=== PATIENT | male | born 1965 | race Caucasian/White ===

== ENCOUNTER 2016-10-22 07:53 | Emergency (ER) | payer BC ==
[2016-10-22 08:20] VITALS: BP 144/92
--- NOTE | 2016-10-22 08:39 | UC ---
Respiratory Complaint HPI - HPI Summary HPI Summary: cough x 7 days , + chest tightness, wheezing , no chest pain , no sob, no fever or chills - History of Current Complaint Chief Complaint: UCRespiratory Stated Complaint: COUGH,TIGHT CHEST,DIZZY Time Seen by Provider: 10/22/16 08:14 Hx Obtained From: Patient Onset/Duration: Gradual Onset, Lasting Days - 7, Still Present Timing: Constant Severity Initially: Moderate Severity Currently: Moderate Character: Cough: Nonproductive Aggravating Factors: Deep Breaths Alleviating Factors: Nothing Associated Signs And Symptoms: Positive: Wheezing, URI, Nasal Congestion. Negative: Dyspnea, Fever, Chills, Pleuritic Chest Pain, Hemoptysis, Dizziness, Calf Pain, Calf Swelling, Edema - Allergies/Home Medications Allergies/Adverse Reactions: Allergies Allergy/AdvReac Type Severity Reaction Status Date / Time No Known Allergies Allergy Verified 10/22/16 08:07 Home Medications: Home Medications Chlorthalidone TAB* [Hygroton TAB*] 25 mg PO DAILY 10/22/16 [History Confirmed 10/22/16] Spironolactone TAB* [Aldactone TAB*] 25 mg PO DAILY 10/22/16 [History Confirmed 10/22/16] Telmisartan (NF) [Micardis (NF)] 40 mg PO DAILY 10/22/16 [History Confirmed 01/31] metFORMIN* [Glucophage 500 MG TAB *] 500 mg PO BID 10/22/16 [History Confirmed 10/22/16] traZODone TAB* [Desyrel TAB*] 50 mg PO BEDTIME 10/22/16 [History Confirmed 10/22] PMH/Surg Hx/FS Hx/Imm Hx Endocrine History Of: Reports: Diabetes Cardiovascular History Of: Reports: Cardiac Disorders - Tachycardia, Hypertension - Surgical History Surgical History: Yes Surgery Procedure, Year, and Place: FOOT SURGERY,. HERNIA REPAIR A CHILD - Family History Known Family History: Positive: Hypertension, Diabetes - Social History Alcohol Use: six beers daily Substance Use Type: None Smoking Status (MU): Light Every Day Tobacco Smoker Type: Smokeless Tobacco Amount Used/How Often: 1/3 PPD Have You Smoked in the Last Year: Yes When Did the Patient Quit Smoking/Using Tobacco: Since Age 14 - Immunization History Most Recent Influenza Vaccination: Fall 2015 Review of Systems Constitutional: Negative Skin: Negative Eyes: Negative ENT: Negative Respiratory: Cough Cardiovascular: Negative Gastrointestinal: Negative All Other Systems Reviewed And Are Negative: Yes Physical Exam Triage Information Reviewed: Yes Appearance: Well-Appearing, No Pain Distress, Obese Vital Signs: Initial Vital Signs Temp 98.3 F 10/22/16 07:59 Pulse 104 10/22/16 07:59 Resp 20 10/22/16 07:59 BP 144/92 10/22/16 07:59 Pulse Ox 100 10/22/16 07:59 Eye Exam: Normal Eyes: Positive: Conjunctiva Clear ENT: Positive: Normal ENT inspection, Hearing grossly normal, Pharynx normal Neck: Positive: Supple, Nontender, No Lymphadenopathy Respiratory Exam: Normal Respiratory: Positive: Chest non-tender, No respiratory distress, No accessory muscle use, Wheezing Cardiovascular: Positive: Tachycardia UC Diagnostic Evaluation - Laboratory O2 Sat by Pulse Oximetry: 100 Respiratory Course/Dx - Differential Dx/Diagnosis Provider Diagnoses: acute bronchitis Discharge - Discharge Plan Condition: Stable Disposition: HOME Prescriptions: Albuterol HFA INHALER* [Ventolin HFA Inhaler*] 2 puff INH Q6H PRN #1 mdi PRN Reason: Wheezing Azithromycin TAB* [Zithromax TAB (Z-MACARIO) 250 mg #6 tabs] 2 tab PO .TODAY, THEN 1 DAILY #1 macario Benzonatate CAP* [Tessalon 100 MG CAP*] 100 mg PO TID #21 cap Patient Education Materials: Acute Bronchitis (ED) Referrals: Warren Hull DO [Primary Care Provider] - 5 Days
== END 2016-10-22 08:41 | disposition home or self-care (01) ==
LOC: UCCORT 07:53
DX: J20.9 Acute bronchitis, unspecified (principal); E11.9 Type 2 diabetes mellitus without complications; I10 Essential (primary) hypertension; R00.0 Tachycardia, unspecified; E66.9 Obesity, unspecified; F17.210 Nicotine dependence, cigarettes, uncomplicated
CPT/HCPCS: 93005; 99212; G0463